=== PATIENT | male | born 1955 | race Caucasian/White ===

== ENCOUNTER 2016-03-29 10:37 | Outpatient (CLI) | payer BC ==
--- NOTE | 2016-03-29 11:42 | DIAGNOSTIC IMAGING REPORT ---
PROCEDURE: US NONVASCULAR EXTREMITY-LEFT INDICATION: LT ELBOW PAIN,F/U ASBCESS,R/O OSTEOMYELITIS TECHNIQUE: Mckeon scale and color Doppler ultrasound of the left elbow COMPARISON: None. FINDINGS: There is a 3.4 x 2.9 x 1.3 cm slightly hypoechoic solid area posterior to the elbow overlying the olecranon, with hyperemia, consistent with a phlegmon. There is no evidence of a fluid collection to suggest an abscess. IMPRESSION: 1. Olecranon cellulitis/phlegmon. No evidence of an abscess 2. Results discussed with ALICIA Banegas
== END 2016-03-29 23:00 ==
LOC: US SRH 10:37
DX: L03.114 Cellulitis of left upper limb (principal)

== ENCOUNTER 2016-05-26 09:09 | Outpatient (CLI) | payer BC ==
--- NOTE | 2016-05-26 10:47 | DIAGNOSTIC IMAGING REPORT ---
PROCEDURE: XR ELBOW 3 OR 4 VIEWS - LEFT INDICATION: LT ELBOW PAIN,CELLULITS TECHNIQUE: Four views. COMPARISON: None. FINDINGS: There is osteolysis and cortical destruction of the olecranon process. IMPRESSION: 1. Osteomyelitis olecranon process
--- NOTE | 2016-05-26 13:49 | DIAGNOSTIC IMAGING REPORT ---
PROCEDURE: NM BONE/JOINT THREE PHASE INDICATION: LT ELBOW PAIN,CELLULITIS TECHNIQUE: 26 mCi of technetium-99m MDP. Blood flow, blood pool, and delayed static images. COMPARISON: Left elbow x-ray 05/26/2016. FINDINGS: Blood flow and blood pool images demonstrate hyperemia around the left elbow joint. Three hour delayed views demonstrate focal markedly increased uptake of the olecranon corresponding to the osteolysis and cortical destruction of the olecranon today's x-rays consistent with osteomyelitis.. IMPRESSION: 1. Left olecranon osteomyelitis 2. Results discussed with Dr. Richards
== END 2016-05-26 23:00 ==
LOC: XR SRH 09:09 → NM SRH 10:00 → XR SRH 23:00
DX: M86.8X2 Other osteomyelitis, upper arm (principal)

== ENCOUNTER 2016-07-07 11:02 | Outpatient (CLI) | payer BC ==
--- NOTE | 2016-07-07 18:39 | DIAGNOSTIC IMAGING REPORT ---
PROCEDURE: NM BONE/JOINT THREE PHASE INDICATION: OSTEOMYLITIS TECHNIQUE: 25 mCi of technetium 99m MDP was injected intravenously. Dynamic arterial phase images of the upper extremities were acquired over the first 120 seconds. Anterior projection blood pool image was acquired. Following a three hour delay, anterior and bilateral medial spot images were acquired. COMPARISON: 05/26/2016 FINDINGS: Dynamic blood flow imaging demonstrates subtle relative decrease in arterial hyperemia in the proximal elbow region compared to the prior study. Blood pool image demonstrates mild increased blood pool focally around the left olecranon. There is much less soft tissue hyperemia on the blood pool image compared to the prior study. Delayed images demonstrate prominent focal radiotracer uptake in the left olecranon, similar intensity compared to the previous study. IMPRESSION: 1. Decreasing hyperemia and cellulitis around the left elbow. 2. Persistent radiotracer uptake in the left olecranon consistent with osteomyelitis. Resolving changes of osteomyelitis can be followed with radiographs.
== END 2016-07-07 23:00 ==
LOC: NM SRH 11:02
DX: M86.18 Other acute osteomyelitis, other site (principal)